=== PATIENT | male | born 1980 | race Caucasian/White ===

== ENCOUNTER 2017-05-31 14:33 | Emergency (ER) | payer SELFPAY ==
--- NOTE | 2017-05-31 15:56 | ER Document Report ---
ED Oral Problem - General Chief Complaint: Mouth Problem Stated Complaint: MOUTH PAIN Time Seen by Provider: 05/31/17 15:26 Mode of Arrival: Ambulatory Information source: Patient - HPI Patient complains to provider of: Other - Gum pain Onset: Last week Onset: Gradual Severity: Moderate Notes: Patient arrives with complaints of left lower gum pain for the last week. He states that the pain is progressively gotten worse and is now starting to have some pain to the right lower gum as well. The patient has a partial and states that he has trouble wearing his partial because of the pain that he is having. He denies any swelling to this area. He denies any fevers. He denies any nausea, vomiting, diarrhea. He denies any difficulty controlling his bowels or bladder. He denies any chest pain or shortness of breath. He denies any sore throat. No facial swelling. No rashes. No other complaints at this time. - Related Data Allergies/Adverse Reactions: No Known Allergies Allergy (Verified 03/22/12 10:09) Past Medical History - Social History Smoking Status: Unknown if Ever Smoked Family History: Reviewed & Not Pertinent - Past Medical History Cardiac Medical History: Denies: Hx Coronary Artery Disease, Hx Hypertension Pulmonary Medical History: Denies: Hx Asthma Endocrine Medical History: Denies: Hx Diabetes Mellitus Type 1, Hx Diabetes Mellitus Type 2 - Immunizations Hx Diphtheria, Pertussis, Tetanus Vaccination: Yes Review of Systems - Review of Systems -: Yes All other systems reviewed and negative Physical Exam - Vital signs Vitals: Temp Pulse Resp BP Pulse Ox 98.5 F 82 14 141/79 H 99 05/31/17 14:52 05/31/17 14:52 05/31/17 14:52 05/31/17 14:52 05/31/17 14:52 - Notes Notes: GENERAL: alert, cooperative, nontoxic, no distress. HEAD: normocephalic, atraumatic EYES: conjunctiva pink without discharge, no external redness or swelling. EARS: no external swelling, no external redness NOSE: atraumatic, no external swelling MOUTH/THROAT: mucous membranes moist and pink. Patient is noted to have previous dental extractions to the bilateral lower molars and bicuspid. Patient is noted to have a fissure along the gum/bucca mucosa of the left side of the lower gums with tenderness over this area. There is no swelling or abscess noted. There is no sublingual swelling or induration noted. Minimal tenderness along the gum/bucca mucosa on the right as well. No swelling or abscess in this area. Patient has no facial swelling or jaw swelling. No Trismus or drooling. NECK: soft, supple, full range of motion, no meningismus. CHEST: no distress, lungs clear and equal throughout. No wheezing, rales, rhonchi. CARDIAC: regular rate and rhythm, no murmur, normal capillary refill, normal pulses. BACK: full range of motion, no CVA tenderness. EXTREMITIES: full range of motion of all extremities. No redness, no swelling. NEURO: alert and oriented 3, no focal deficits, full range of motion of all extremities. PYSCH: appropriate mood, affect. Patient is cooperative. SKIN: pink, warm, dry, no rash. Course - Re-evaluation Re-evalutation: 05/31/17 15:54 Patient arrives with complaints of lower gum pain. The patient is noted to have a partial and appears to have a fissure where the partial is hitting his gum/bucca mucosa on the left. This is where his area of tenderness is. There is no swelling or abscess noted. He is no sublingual swelling or induration. No sign of Julio's angina. Airway is patent. He is in no distress. Will place the patient on amoxicillin, Peridex, Voltaren, very small supply of [place] for pain. He was instructed to follow-up with a dentist at the next available appointment as his partial may need to be adjusted as it appears to be digging into the gums causing his pain. The patient is noted to have elevated blood pressure during today's emergency department visit. The patient was informed of this finding. The patient was instructed that this may be related to pre-hypertension and requires further evaluation with a primary care provider. The patient has no hypertensive symptoms at this time. The patient's emergency department workup and current diagnosis were explained to the patient and or family. Follow-up instructions were provided. Medications if prescribed were discussed. Instructions for when to return to the emergency department including specific worrisome symptoms were discussed with the patient and/or family. - Vital Signs Vital signs: Temp Pulse Resp BP Pulse Ox 98.5 F 82 14 141/79 H 99 05/31/17 14:52 05/31/17 14:52 05/31/17 14:52 05/31/17 14:52 05/31/17 14:52 Discharge - Discharge Clinical Impression: Gingival fissure, Pain in gums Condition: Stable Disposition: HOME, SELF-CARE Instructions: Dentist, Dental Infection or Abscess (OM) Additional Instructions: Avoid wearing your partial until this area has healed. Use the Peridex mouthwash after eating. Take medications as prescribed. See a dentist at the next available appointment. Follow-up sooner for increased pain, fever, swelling, difficulty breathing or swallowing, or for any further concerns. Your blood pressure was elevated during today's visit. Have this rechecked with your doctor. The medication you were prescribed today may cause drowsiness. Do not drive or operate heavy machinery while taking this medication. Prescriptions: Amoxicillin Trihydrate [Amoxil 500 mg Capsule] 500 mg PO TID #30 cap Chlorhexidine Gluconate [Peridex] 15 ml BUCCAL TID PRN #1 bottle PRN Reason: Diclofenac Sodium [Voltaren 50 Mg Mirella.] 50 mg PO BID #20 tablet.dr Hydrocodone/Acetaminophen [[place] 5-325 mg Tablet] 1 tab PO Q6H PRN #5 tab PRN Reason: Forms: Elevated Blood Pressure, Smoking Cessation Education Referrals: [facility] [Provider Group] - Follow up as needed [facility] [Provider Group] - Follow up as needed
[2017-05-31 17:15] VITALS: BP 136/84
== END 2017-05-31 16:50 | disposition home or self-care (01) ==
LOC: ER 14:33
DX: K05.00 Acute gingivitis, plaque induced (principal); K08.89 Other specified disorders of teeth and supporting structures
CPT/HCPCS: 99282